=== PATIENT | female | born 1980 | race Caucasian/White ===

== ENCOUNTER 2017-08-02 20:24 | Emergency (ER) | payer OTHER ==
[~2017-08-02] VITALS: Ht 177.8 cm; Wt 62.6 kg
[2017-08-02 22:38] VITALS: BP 140/90
== END 2017-08-02 22:40 | disposition home or self-care (01) ==
LOC: ER 20:25
DX: S05.11XA Contusion of eyeball and orbital tissues, right eye, initial encounter (principal); S30.810A Abrasion of lower back and pelvis, initial encounter; Y04.0XXA Assault by unarmed brawl or fight, initial encounter; Y93.89 Activity, other specified; Y92.481 Parking lot as the place of occurrence of the external cause; Y99.9 Unspecified external cause status
CPT/HCPCS: 99281

== ENCOUNTER 2020-04-28 22:43 | Emergency (ER) | payer MEDICARE, MEDICAID ==
[~2020-04-28] VITALS: Ht 170.2 cm; Wt 57.7 kg
[2020-04-28 22:44] VITALS: BP 134/103
[2020-04-28] MEDS ORDERED: ibuprofen tablet 400 MG TABLET PO ONE (23:30)
--- NOTE | 2020-04-28 23:34 | NUR ---
Pt in bed with [facility]P at bedside.
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
== END 2020-04-29 00:32 ==
LOC: ER 22:45
DX: M54.5 Low back pain (principal)
CPT/HCPCS: 36415; 72100; 80320; 99284

== ENCOUNTER 2020-07-15 08:44 | Emergency (ER) | payer MEDICARE, MEDICAID ==
[~2020-07-15] VITALS: Ht 170.2 cm; Wt 55.9 kg
[2020-07-15 09:06] VITALS: BP 168/105
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
== END 2020-07-15 10:13 | disposition left against medical advice (07) ==
LOC: ER 08:44
DX: L23.7 Allergic contact dermatitis due to plants, except food (principal); Z53.21 Procedure and treatment not carried out due to patient leaving prior to being seen by health care provider

== ENCOUNTER 2021-09-08 06:51 | Emergency (ER) | payer MEDICARE, MEDICAID ==
[~2021-09-08] VITALS: Ht 167.6 cm; Wt 56.8 kg
[2021-09-08 06:54] VITALS: BP 135/87
[2021-09-08] MEDS ORDERED: NAPR-56 PO (07:40)
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
--- NOTE | 2021-09-08 08:00 | NUR ---
PATIENT HAS NOT GIVEN URINALYSIS YET AND STATES SHE WANTS GAUZE TO PUT ON HER FOOT WOUNDS. PATIENT GIVEN CLEANSING WIPES, TRIPLE ANTIBIOTIC OINT, GAUZE, TAPE, AND SLIPPER SOCKS. URINE CUP PROVIDED AND PATIENT INSTRUCTED TO WALK TO THE BATHROOM AFTER SHE FINISHES PUTTING GAUZE ON HER FOOT WOUNDS.
--- NOTE | 2021-09-08 08:10 | NUR ---
PATIENT SITTING UP ON THE GURNEY, PICKING ON HER FOOT WOUNDS. PATIENT IS INSTRUCTED TO PUT ON SLIPPER SOCKS AND GIVE THE URINE SPECIMEN, SO ANALYSIS CAN BE COMPLETED. PATIENT STATES SHE WILL DO THAT RIGHT AWAY.
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
--- NOTE | 2021-09-08 08:40 | NUR ---
DC PAPERWORK GIVEN TO PATIENT AND SECURITY ESCORTED PATIENT OUT OF ER. PATIENT DEPARTED AMBULATORY, IN GOOD CONDITION, STATING THAT SHE WILL GO TO [facility] ER TO HAVE THE URINALYSIS DONE.
== END 2021-09-08 08:55 | disposition home or self-care (01) ==
LOC: ER 06:52
DX: S90.812A Abrasion, left foot, initial encounter (principal); S90.811A Abrasion, right foot, initial encounter; L03.116 Cellulitis of left lower limb; L03.115 Cellulitis of right lower limb; L23.7 Allergic contact dermatitis due to plants, except food; Z72.89 Other problems related to lifestyle; Z79.899 Other long term (current) drug therapy; X58.XXXA Exposure to other specified factors, initial encounter; Y93.01 Activity, walking, marching and hiking; Y92.89 Other specified places as the place of occurrence of the external cause; Y99.8 Other external cause status
CPT/HCPCS: 99282

== ENCOUNTER 2021-09-12 14:59 | Emergency (ER) | payer MEDICARE, MEDICAID ==
[~2021-09-12] VITALS: Ht 170.2 cm; Wt 55.5 kg
[~2021-09-12 14:59] MED LIST: NAPR-56 PO
[2021-09-12] MEDS ORDERED: normal saline 1000ML IV soln IVB ONE (15:05)
[2021-09-12] MEDS ORDERED: LORazepam 2 mg/ml vial IV ONE (15:05)
[2021-09-12 15:31] LABS: BASOPHILS % (AUTO) 0.5 % (0-1); EOSINOPHILS % (AUTO) 0.2 % (0-6); HEMATOCRIT 35.5 % (35.0-45.0); HEMOGLOBIN 12.4 g/dl (12.0-16.0); LYMPHOCYTES # (AUTO) 1.3 X10'3 (1.1-4.8); LYMPHOCYTES % (AUTO) 15.8 % (21-51); MEAN CORPUSCULAR HEMOGLOBIN 31.2 PG (27.0-31.0); MEAN CORPUSCULAR VOLUME 89.3 FL (78-98); MEAN PLATELET VOLUME 8.9 FL (7.4-10.4); MONOCYTES % (AUTO) 11.4 % (2-12); NEUTROPHILS % (AUTO) 72.1 % (42-75); PLATELET COUNT 352 X10'3 (140-440); RED BLOOD COUNT 3.98 X10'6 (4.20-5.60); RED CELL DISTRIBUTION WIDTH 14.5 % (11.5-14.5); WHITE BLOOD COUNT 8.3 X10'3 (4.5-11.0)
[2021-09-12 15:52] LABS: ALANINE AMINOTRANSFERASE 112 U/L (12-78); ALBUMIN 4.1 G/DL (3.4-5.0); ALKALINE PHOSPHATASE 42 IU/L (46-116); ANION GAP 18 (8-16); ASPARTATE AMINO TRANSFERASE 174 U/L (10-37); BILIRUBIN,TOTAL 1.2 MG/DL (0.1-1.0); BLOOD UREA NITROGEN 37 MG/DL (7-18); BUN/CREATININE RATIO 38.1 (6.6-38.0); CALCIUM 9.4 MG/DL (8.5-10.1); CHLORIDE 104 MMOL/L (99-107); CREATININE 0.97 MG/DL (0.40-0.90); GLUCOSE 135 MG/DL (70-104); POTASSIUM 3.9 MMOL/L (3.5-5.1); SODIUM 142 MMOL/L (135-145); TOTAL CARBON DIOXIDE 19.7 MMOL/L (24-32); TOTAL PROTEIN 8.3 G/DL (6.4-8.2); eGFR 63 ML/MIN
[2021-09-12 16:00] LABS: ETHANOL < 0.010 GM/DL (0.0-0.010)
[2021-09-12 16:05] LABS: CREATINE KINASE 6433 U/L (26-192)
[2021-09-12 16:38] LABS: GLUCOSE, URINE NEGATIVE (Neg); KETONES,URINE 40 mg/dl (Neg); LEUKOCYTE ESTERASE ,URINE NEGATIVE (Neg); NITRITES, URINE NEGATIVE (Neg); OCCULT BLOOD,URINE SMALL (Neg); PROTEIN,URINE 100 mg/dl (Neg); UA COLLECTION TYPE STRAIGHT CATH; UROBILINOGEN,URINE 0.2 E.U/dL (0.2-1.0)
[2021-09-12 16:39] LABS: CLARITY,URINE SLIGHTLY CLOUDY (Clear); COLOR,URINE DARK YELLOW (Yellow)
[2021-09-12 16:44] LABS: BACTERIA,URINE FEW /HPF (Neg); MUCUS STRANDS MODERATE /LPF (Neg); RBC,URINE 0-2 /HPF (0-2); SQUAMOUS EPITHELIAL CELL,UR NONE SEEN /LPF (FEW); TRANSITIONAL EPI CELLS,URINE FEW /HPF; WBC,URINE 0-4 /HPF (0-4)
[2021-09-12 16:51] LABS: URINE AMPHETAMINE SCREEN NEGATIVE (Neg); URINE BARBITUATE SCREEN NEGATIVE (Neg); URINE BENZODIAZEPINES SCREEN NEGATIVE (Neg); URINE CANNABINOID SCREEN POSITIVE (Neg); URINE COCAINE SCREEN NEGATIVE (Neg); URINE METHADONE SCREEN NEGATIVE (Neg); URINE OPIATE SCREEN NEGATIVE (Neg); URINE PHENCYCLIDINE SCREEN NEGATIVE (Neg)
[2021-09-12 16:56] LABS: URINE HCG NEGATIVE (NEG)
[2021-09-12] MEDS ORDERED: normal saline 1000ml 1,000 ML IV ONE (17:55)
[2021-09-12] MEDS: ringers solution, lacted 1,000 ML IV SCH ×2 (18:04→23:27)
--- NOTE | 2021-09-12 18:42 | NUR ---
Pt pink, no acute/resp distress. Bed in lowest position, wheels locked, rail 2/2 up. Pt laying supine. Pt able to reposition self prn. Will continue to monitor for acute changes and needs.
[2021-09-12] MEDS ORDERED: CYCL-1 PO (20:21)
[2021-09-12] MEDS ORDERED: HYDR50TA65 PO (20:21)
[2021-09-12] MEDS ORDERED: NORG-45 (20:21)
[2021-09-12] MEDS ORDERED: NAPR500T6 PO (20:21)
[2021-09-12] MEDS ORDERED: ACET-75 (20:21)
--- NOTE | 2021-09-12 20:34 | NUR ---
Note freeman in EDM - 09/12/21 at 2034 by NYA Pt pink, no acute/resp distress. Bed in lowest position, wheels locked, rail 2/2 up. Will continue to monitor for acute changes and needs. Pt laying supine, able to reposition self PRN. Will continue to monitor for acute changes and needs.
[2021-09-12 20:55] LABS: CREATINE KINASE 4236 U/L (26-192)
--- NOTE | 2021-09-12 22:20 | NUR ---
Patient's packet was sent to [facility].
--- NOTE | 2021-09-13 02:57 | NUR ---
Pt pink, no acute/resp distress. Bed in lowest position, wheels locked, rail 2/2 up. Pt laying supine. Pt able to reposition self prn. Will continue to monitor for acute changes and needs. Pt to bathroom via wc. Pt eating jello and drinking juice.
--- NOTE | 2021-09-13 05:04 | NUR ---
Pt pink, no acute/resp distress. Bed in lowest position, wheels locked, rail 2/2 up. Pt laying left. Pt able to reposition self prn. Will continue to monitor for acute changes and needs.
--- NOTE | 2021-09-13 06:40 | NUR ---
Pt talks to herself. Stated that parasites are trying to get out of her body. Multiple abrassions on B UE and old blisters on B feet. She admitted to pulling out her IV.
--- NOTE | 2021-09-13 07:00 | NUR ---
Pt is baby talking and acting very childish. She is cooperative.
[2021-09-13] MEDS ORDERED: OLANZapine 5mg rapidly disint. tablet PO ONE (07:55)
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
[2021-09-13] MEDS ORDERED: LORazepam 2 mg/ml vial IV ONE (08:20)
[2021-09-13] MEDS: ringers solution, lacted 1,000 ML IV SCH ×3 (08:30→21:50)
[2021-09-13 08:32] LABS: BASOPHILS # (AUTO) 0.1 X10'3 (0-0.2); BASOPHILS % (AUTO) 0.7 % (0-1); EOSINOPHILS # (AUTO) 0.1 X10'3 (0-0.9); EOSINOPHILS % (AUTO) 1.2 % (0-6); HEMATOCRIT 33.3 % (35.0-45.0); HEMOGLOBIN 11.3 g/dl (12.0-16.0); LYMPHOCYTES # (AUTO) 2.6 X10'3 (1.1-4.8); LYMPHOCYTES % (AUTO) 34.9 % (21-51); MEAN CORPUSCULAR HEMOGLOBIN 31.2 PG (27.0-31.0); MEAN CORPUSCULAR VOLUME 91.7 FL (78-98); MEAN PLATELET VOLUME 8.9 FL (7.4-10.4); MONOCYTES # (AUTO) 0.8 X10'3 (0-0.9); MONOCYTES % (AUTO) 10.7 % (2-12); NEUTROPHILS # (AUTO) 3.9 X10'3 (1.8-7.7); NEUTROPHILS % (AUTO) 52.5 % (42-75); PLATELET COUNT 292 X10'3 (140-440); RED BLOOD COUNT 3.63 X10'6 (4.20-5.60); RED CELL DISTRIBUTION WIDTH 14.7 % (11.5-14.5); WHITE BLOOD COUNT 7.3 X10'3 (4.5-11.0)
[2021-09-13 08:47] LABS: ALANINE AMINOTRANSFERASE 88 U/L (12-78); ALBUMIN 3.2 G/DL (3.4-5.0); ALKALINE PHOSPHATASE 32 IU/L (46-116); ANION GAP 11 (8-16); ASPARTATE AMINO TRANSFERASE 115 U/L (10-37); BILIRUBIN,TOTAL 0.9 MG/DL (0.1-1.0); BLOOD UREA NITROGEN 13 MG/DL (7-18); BUN/CREATININE RATIO 17.6 (6.6-38.0); CALCIUM 8.1 MG/DL (8.5-10.1); CHLORIDE 105 MMOL/L (99-107); CREATININE 0.74 MG/DL (0.40-0.90); GLUCOSE 91 MG/DL (70-104); POTASSIUM 3.5 MMOL/L (3.5-5.1); SODIUM 141 MMOL/L (135-145); TOTAL CARBON DIOXIDE 24.9 MMOL/L (24-32); TOTAL PROTEIN 6.5 G/DL (6.4-8.2); eGFR 86 ML/MIN
[2021-09-13 08:56] LABS: CREATINE KINASE 3883 U/L (26-192); MAGNESIUM 1.7 MG/DL (1.5-2.4)
--- NOTE | 2021-09-13 09:00 | NUR ---
Pt ate 100% of breakfast.
--- NOTE | 2021-09-13 11:00 | NUR ---
Pt is resting.
--- NOTE | 2021-09-13 12:35 | NUR ---
Pt ate 30% of lunch.
--- NOTE | 2021-09-13 13:30 | NUR ---
Ange millard in [facility] - 09/13/21 at 1753 by MACARIO Pt ate 40% of lunch.
--- NOTE | 2021-09-13 14:05 | NUR ---
Up to void.
[2021-09-13 16:07] LABS: CREATINE KINASE 2658 U/L (26-192)
--- NOTE | 2021-09-13 17:00 | NUR ---
Pt is resting.
[2021-09-13 17:40] LABS: ALANINE AMINOTRANSFERASE 73 U/L (12-78); ALBUMIN 2.6 G/DL (3.4-5.0); ALBUMIN/GLOBULIN RATIO 0.9 (1.1-1.5); ALKALINE PHOSPHATASE 28 IU/L (46-116); ANION GAP 10 (8-16); ASPARTATE AMINO TRANSFERASE 86 U/L (10-37); BILIRUBIN,TOTAL 0.5 MG/DL (0.1-1.0); BLOOD UREA NITROGEN 11 MG/DL (7-18); CALCIUM 8.1 MG/DL (8.5-10.1); CHLORIDE 105 MMOL/L (99-107); CREATININE 0.55 MG/DL (0.40-0.90); GLUCOSE 103 MG/DL (70-104); POTASSIUM 3.5 MMOL/L (3.5-5.1); SODIUM 138 MMOL/L (135-145); TOTAL CARBON DIOXIDE 22.6 MMOL/L (24-32); TOTAL PROTEIN 5.6 G/DL (6.4-8.2); eGFR > 90 ML/MIN
[2021-09-13] MEDS ORDERED: ringers solution, lacted 1,000 ML IV ONE (18:05)
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
[2021-09-13] MEDS: OLANZapine 5mg rapidly disint. tablet PO SCH (20:40)
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
--- NOTE | 2021-09-13 23:06 | NUR ---
The patient appears to be sleeping
--- NOTE | 2021-09-14 01:01 | NUR ---
The patient appears to be sleeping
--- NOTE | 2021-09-14 01:58 | NUR ---
The patient appears to be sleeping
--- NOTE | 2021-09-14 03:48 | NUR ---
The patient appears to be sleeping
--- NOTE | 2021-09-14 05:19 | NUR ---
The patient appeared to have slept fairly well during the night. She did ambulate to and from the bathroom twice.
[2021-09-14 06:01] VITALS: BP 113/69
[2021-09-14] MEDS: OLANZapine 5mg rapidly disint. tablet PO SCH (08:40)
--- NOTE | 2021-09-14 10:16 | NUR ---
PT UP AMBULATING IN UNIT, TALKING TO SELF. APPROPRIATE, PLEASANT.
--- NOTE | 2021-09-14 10:25 | NUR ---
PRASHANTH FROM [facility] CALLED. PT HAS BEEN ACCEPTED TO [facility] IN [place]. WILL BE PICKED UP TODAY AT 2PM JUST NEEDS A COVID TEST.
[2021-09-14] MEDS ORDERED: LORazepam 1 MG tablet PO ONE (11:00)
--- NOTE | 2021-09-14 11:00 | NUR ---
PT ESCALATING THROWING THINGS, CALLING STAFF BITCHES, INFORMED DR. ALEJANDRA.PLEASE SEE NEW ORDERS.
--- NOTE | 2021-09-14 11:57 | NUR ---
PT CALM LAYING IN BED.
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
--- NOTE | 2021-09-14 12:03 | NUR ---
KATHARINE [id number]
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
== END 2021-09-14 14:13 ==
LOC: ER 15:00
DX: F29 Unspecified psychosis not due to a substance or known physiological condition (principal); Z20.822 Contact with and (suspected) exposure to COVID-19; F31.9 Bipolar disorder, unspecified; M62.82 Rhabdomyolysis; F20.9 Schizophrenia, unspecified; Z72.89 Other problems related to lifestyle; Z79.899 Other long term (current) drug therapy
CPT/HCPCS: 36415; 80053; 80305; 80320; 81001; 81025; 82550; 83605; 83735; 84443; 85025; 87635; 96361; 96374; 96376; 99285; C9803; J2060; J7030; J7120

== ENCOUNTER 2021-10-12 08:52 | Emergency (ER) | payer MEDICARE, MEDICAID ==
[~2021-10-12] VITALS: Ht 170.2 cm; Wt 60.0 kg
[~2021-10-12 08:52] MED LIST changes: +ACET-75; +CYCL-1 PO; +HYDR50TA65 PO; -NAPR-56 PO; +NAPR500T6 PO; +NORG-45
[2021-10-12 08:55] VITALS: BP 128/99
[2021-10-12] MEDS ORDERED: TETanus/Pertussis (Acell)/Diphther VAC/PF (Tdap-Adult) 0.5ml syringe IMVAC ONE (09:05)
[2021-10-12] MEDS ORDERED: LIDOcaine 1% W/epiNEPHrine 1:100,000 20ml vial IJ ONE (09:05)
[2021-10-12] MEDS ORDERED: LIDOcaine 1% W/epiNEPHrine 1:200,000 10ml vial IJ ONE (09:05)
[2021-10-12] MEDS ORDERED: LORazepam 1 MG tablet PO ONE (09:20)
--- NOTE | 2021-10-12 09:27 | NUR ---
welding machine operator/tender at bedside to clean head leac. pt pre-medicated with ativan.
== END 2021-10-12 09:58 ==
LOC: ER 08:52
DX: S01.01XA Laceration without foreign body of scalp, initial encounter (principal); F31.9 Bipolar disorder, unspecified; Z72.89 Other problems related to lifestyle; Z79.899 Other long term (current) drug therapy; Z20.3 Contact with and (suspected) exposure to rabies; X58.XXXA Exposure to other specified factors, initial encounter; Y93.89 Activity, other specified; Y92.89 Other specified places as the place of occurrence of the external cause; Y99.8 Other external cause status
CPT/HCPCS: 12002; 90471; 90715; 99284; J3490; 12001

== ENCOUNTER 2021-10-13 13:14 | Inpatient (IN) | payer MEDICARE, MEDICAID ==
[~2021-10-13] VITALS: Ht 170.2 cm; Wt 69.0 kg
[2021-10-13 13:41] LABS: BASOPHILS % (AUTO) 0.7 % (0-1); EOSINOPHILS % (AUTO) 0.4 % (0-6); HEMATOCRIT 34.9 % (35.0-45.0); HEMOGLOBIN 11.5 g/dl (12.0-16.0); LYMPHOCYTES # (AUTO) 1.9 X10'3 (1.1-4.8); LYMPHOCYTES % (AUTO) 29.9 % (21-51); MEAN CORPUSCULAR HEMOGLOBIN 30.4 PG (27.0-31.0); MEAN CORPUSCULAR HGB CONC 32.9 g/dL (33.0-36.5); MEAN CORPUSCULAR VOLUME 92.4 FL (78-98); MEAN PLATELET VOLUME 7.8 FL (7.4-10.4); MONOCYTES # (AUTO) 0.4 X10'3 (0-0.9); MONOCYTES % (AUTO) 6.4 % (2-12); NEUTROPHILS # (AUTO) 3.9 X10'3 (1.8-7.7); NEUTROPHILS % (AUTO) 62.6 % (42-75); PLATELET COUNT 394 X10'3 (140-440); RED BLOOD COUNT 3.78 X10'6 (4.20-5.60); RED CELL DISTRIBUTION WIDTH 14.4 % (11.5-14.5); WHITE BLOOD COUNT 6.2 X10'3 (4.5-11.0)
[2021-10-13 13:53] LABS: ALANINE AMINOTRANSFERASE 25 U/L (12-78); ALBUMIN 4.1 G/DL (3.4-5.0); ALBUMIN/GLOBULIN RATIO 1.2 (1.1-1.5); ALKALINE PHOSPHATASE 41 IU/L (46-116); ANION GAP 11 (8-16); ASPARTATE AMINO TRANSFERASE 25 U/L (10-37); BLOOD UREA NITROGEN 11 MG/DL (7-18); BUN/CREATININE RATIO 16.4 (6.6-38.0); CALCIUM 9.2 MG/DL (8.5-10.1); CHLORIDE 103 MMOL/L (99-107); CREATININE 0.67 MG/DL (0.40-0.90); GLUCOSE 104 MG/DL (70-104); POTASSIUM 3.8 MMOL/L (3.5-5.1); SODIUM 136 MMOL/L (135-145); TOTAL CARBON DIOXIDE 21.9 MMOL/L (24-32); TOTAL PROTEIN 7.6 G/DL (6.4-8.2); eGFR > 90 ML/MIN
[2021-10-13 14:08] LABS: ETHANOL < 0.010 GM/DL (0.0-0.010)
[2021-10-13 14:45] LABS: URINE HCG NEGATIVE (NEG)
[2021-10-13] MEDS ORDERED: LORazepam 2 mg/ml vial IM ONE (14:45)
[2021-10-13] MEDS ORDERED: haloperidol lactate 5mg/ml inj IM ONE (14:45)
[2021-10-13] MEDS ORDERED: diphenhydrAMINE 50 mg/ml inj IM ONE (14:45)
[2021-10-13 14:49] LABS: URINE AMPHETAMINE SCREEN POSITIVE (Neg); URINE BARBITUATE SCREEN NEGATIVE (Neg); URINE BENZODIAZEPINES SCREEN NEGATIVE (Neg); URINE CANNABINOID SCREEN POSITIVE (Neg); URINE COCAINE SCREEN NEGATIVE (Neg); URINE METHADONE SCREEN NEGATIVE (Neg); URINE OPIATE SCREEN NEGATIVE (Neg); URINE PHENCYCLIDINE SCREEN NEGATIVE (Neg)
--- NOTE | 2021-10-13 15:15 | NUR ---
PATIENT MEDICATED FOR ANXIETY/RESTLESSNESS. PATIENT WALKING AROUND IN ROOM WITH BLANKET OVER HER HEAD. PATIENT ENCOURAGED TO REST ON GURNEY, BUT STATES SHE WANTS TO LEAVE NOW. INFORMED SHE WAS ON 5150 HOLD.
--- NOTE | 2021-10-13 19:35 | NUR ---
Pt arrived from main ED and immediately got soap and attempted to use wipes and began washing her hands. Pt requested to use the restoom and did. Pt returned to bed and requested food and water but fell asleep before being provided with either. Pt is currently in bed snoring. RR 16
--- NOTE | 2021-10-13 21:51 | NUR ---
pt laying on her back asleep rr even and unlabored
--- NOTE | 2021-10-14 00:44 | NUR ---
pt is laying on her left side continues to sleep, rr even and unlabored.
--- NOTE | 2021-10-14 02:18 | NUR ---
pt appears to be resting comfortably no distress
--- NOTE | 2021-10-14 03:41 | NUR ---
pt woke to use the bathroom and attempted to flush a garbage bag down the trash and attempted to wash her hair in the sink. Pt put hand soap all over her face and was given a wash cloth to wipe herself off. Pt returned to bed
--- NOTE | 2021-10-14 04:45 | NUR ---
pt is awake requesting to eat and was provided with snacks. Pt throws trash on the floor and is attempting to get more hand soap but was redirected back to her bed. Pt is talking to herself.
--- NOTE | 2021-10-14 06:30 | NUR ---
Patient sleeping on left side. No distress observed. Continue to monitor.
--- NOTE | 2021-10-14 08:05 | NUR ---
Patient eating breakfast. Patient appears disorganized. Continue to monitor.
--- NOTE | 2021-10-14 08:19 | NUR ---
Attempted to obtain urine. Patient was given instructions; hat was placed in toilet, however patient managed to turn hat upside down and pour urine into toilet, then proceeded to fill toilet with paper towels and toilet seat covers.
--- NOTE | 2021-10-14 08:40 | NUR ---
RN gave patient a pitcher of water. Patient drank and then threw on the floor. Patient started speaking to RN stating "At least I know who I am. You don't who you are!"
--- NOTE | 2021-10-14 10:09 | NUR ---
Patient sleeping. No distress observed. RN to ask Dr for antipsychotic medication to start getting patient better. Continue to monitor.
[2021-10-14 11:12] LABS: CLARITY,URINE SLIGHTLY CLOUDY (Clear); COLOR,URINE YELLOW (Yellow); GLUCOSE, URINE NEGATIVE (Neg); KETONES,URINE NEGATIVE (Neg); LEUKOCYTE ESTERASE ,URINE NEGATIVE (Neg); NITRITES, URINE NEGATIVE (Neg); OCCULT BLOOD,URINE SMALL (Neg); PROTEIN,URINE NEGATIVE (Neg); UROBILINOGEN,URINE 0.2 E.U/dL (0.2-1.0)
--- NOTE | 2021-10-14 11:18 | NUR ---
Patient just returned from the restroom, noted to have shoved the paper bag from the trash can into the toilet. She is now laying supine with blanket wrapped around her head like a turban, randomly making high pitched noises, and having nonsensical converations with herself.
[2021-10-14 11:28] LABS: UA COLLECTION TYPE CLN CATCH MIDSTREAM
[2021-10-14 11:37] LABS: BACTERIA,URINE FEW /HPF (Neg); SQUAMOUS EPITHELIAL CELL,UR MODERATE /LPF (FEW)
[2021-10-14 11:38] LABS: RBC,URINE 0-2 /HPF (0-2); WBC,URINE 0-4 /HPF (0-4)
[2021-10-14 11:39] LABS: TRANSITIONAL EPI CELLS,URINE FEW /HPF
--- NOTE | 2021-10-14 12:08 | NUR ---
Patient eating lunch. No distress observed. Continue to monitor.
[2021-10-14] MEDS: OLANZapine 5mg rapidly disint. tablet PO SCH ×2 (12:26→19:39)
--- NOTE | 2021-10-14 12:47 | NUR ---
Note freeman in ED - 10/14/21 at 1256 by STALIN Patient just returned from the bathroom with soap in hair and attempted to use the purple Sani-Cloth wipe to clean face. Patient was redirected back to bed. Continues to randomly speak to herself- occasionally nonsensical sounds, occasionally saying innapropriate comments to staff such as "you're a hoe."
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
--- NOTE | 2021-10-14 12:57 | NUR ---
Patient just returned from the bathroom with soap in hair and attempted to use the purple Sani-Cloth wipe to clean face. Patient was redirected back to bed. Continues to randomly speak to herself- occasionally nonsensical sounds, occasionally saying innapropriate comments to staff such as "you're a hoe."
--- NOTE | 2021-10-14 15:02 | NUR ---
Patient sleeping supine. No distress observed. Continue to monitor.
--- NOTE | 2021-10-14 17:04 | NUR ---
Patient on the phone with her mom. No distress observed. Continue to monitor.
[2021-10-14] MEDS ORDERED: NO HOME MEDS (18:21)
--- NOTE | 2021-10-14 19:14 | NUR ---
The patient has been very disorganized and appears to be responding to internal stimuli. SHe is cursing at someone who is not there. She is throwing items on the floor by her bed like her water cup etc. She is wondering around in areas that she is not allowed to go and requires frequent redirection and close supervision.
--- NOTE | 2021-10-14 20:18 | NUR ---
The patient was cooperative with changing into green scrubs and took her evening medication with no problem. She currently appears to be sleeping
--- NOTE | 2021-10-14 22:34 | NUR ---
The patient appears to be sleeping
--- NOTE | 2021-10-14 23:40 | NUR ---
The patient appears to be sleeping
--- NOTE | 2021-10-15 00:41 | NUR ---
The patient appears to be sleeping
--- NOTE | 2021-10-15 02:14 | NUR ---
The patient appears to be sleeping
--- NOTE | 2021-10-15 03:07 | NUR ---
THe patient up to use the bathroom
--- NOTE | 2021-10-15 03:51 | NUR ---
The patient continues to be disorganized. Was up to use the bathroom but let her blankets fall on the floor. SHe was given warm blankets and now appears back asleep
--- NOTE | 2021-10-15 05:16 | NUR ---
The patient appeared to have slept well during the night. She did get up briefly several times to use the bathroom but then went right back to bed
--- NOTE | 2021-10-15 06:30 | NUR ---
Patient received walking around the unit, pressing alarm buttons, removing linen from her bed, requring frequent redirection. She was observed ambulating to the restroom with a steady gait. Patient noted to have started her menstrual cycle this morning. She was provided with new undergarments and a sanitary pad. She is observed pacing around the unit at this time. Will continue to monitor.
[2021-10-15] MEDS: OLANZapine 5mg rapidly disint. tablet PO SCH ×2 (07:54→19:54)
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
[2021-10-15] MEDS ORDERED: olanzapine 10mg tablet PO ONE (10:05)
--- NOTE | 2021-10-15 10:22 | NUR ---
Patient noted sobbing and yelling out that she "doesn't want to be here anymore" and "doesn't want to go back to her room". Patient was redirected back to her room and given a juice, sandwich, and warm blanket. Patient endorsing c/o anxiety and was given a one-time dose of Zyprexa 10mg PO per order by Dr. Cordero. Patient received medication without hesitancy. She is noted sitting in her room at this time with no s/s of distress. Will continue to monitor.
--- NOTE | 2021-10-15 10:40 | NUR ---
Patient is becoming increasingly agitated, yelling absurdities at staff and stating that we are the crazy ones, and that we need liz in our heads. Security called to bedside.
[2021-10-15] MEDS ORDERED: acetaminophen 325mg tablet PO ONE ×2 (10:45→13:10)
--- NOTE | 2021-10-15 10:45 | NUR ---
Patient noted to be delusional, disorgaized, aggressive and intrusive. Patient noted to be verbally aggressive toward staff requiring security to intervene and redirect.
--- NOTE | 2021-10-15 11:30 | NUR ---
Patient is observed sleeping in her bed at this time. Respirations even, unlabored. Will continue to monitor.
--- NOTE | 2021-10-15 12:03 | NUR ---
Patient awoke and was noted ambulating to the restroom with a steady gait. She retreated back to her room to eat lunch. No s/s of distress or complaints at this time. Will continue to monitor.
--- NOTE | 2021-10-15 12:09 | NUR ---
Patient abruptly yelled out from her room, "take your hands off my children now!"
--- NOTE | 2021-10-15 14:30 | NUR ---
Patient observed sleeping supine in her room at this time. Noted rise and fall of chest. No s/s of distress. Will continue to monitor.
--- NOTE | 2021-10-15 15:32 | NUR ---
Patient awoke and was noted walking around the unit, throwing objects onto the ground. Patient noted to be delusional, disorgaized and intrusive. Will continue to monitor.
[2021-10-15] MEDS ORDERED: hydrOXYzine 25 MG tablet PO ONE (15:40)
[2021-10-15] MEDS: acetaminophen 325mg tablet PO PRN ×2 (15:59→20:44)
--- NOTE | 2021-10-15 16:02 | NUR ---
Patient c/o anxiety and head pain due to liz in her head. She was provided with PRN Atarax and PRN Tylenol at approximately 1559. Will continue to monitor.
--- NOTE | 2021-10-15 16:20 | NUR ---
Patient requested to call mother, Monica, who can be contacted at [phone].
--- NOTE | 2021-10-15 16:30 | NUR ---
Patient observed pacing around the unit, noted sobbing and creating a disturbance. Patient redirected back to her room. She is noted using the restroom frequently and leaving trash all over the ground.
--- NOTE | 2021-10-15 17:35 | NUR ---
Patient provided with personal hygiene supplies. She is observed ambulating around the unit at this time with no s/s of distress. Will continue to monitor.
--- NOTE | 2021-10-15 19:00 | NUR ---
One to one with the patient to assess severity of thought disorder. The patient presents disorganized. She is talking in a high pitched squeeky voice. When she was asked how her mood was she replied, "I have a lot of anxiety. The bad men have kidnapped my my children for sex trafficking..." She then went on to make unrelated statements that were difficult to follow. She denies thoughts to harm herself or others. She was unable to verbalize a realistic plan for food, fdc or clothing if she were not in the hospital and made rambling statements about being sold into human trafficking but then stated she was not sure if that was accurate stating, "I think. I don't know. It gets fuzzy" When asked if she was hearing voices she replied, "just the holy spirit. I have to go with my gut instinct" The patient is unable to formulate any kind of realistic plan for food, fdc or clothing if she was not hospitalized. Her insight and judgement are very poor. Hospitalization pending for further stabilization and evaluation.
--- NOTE | 2021-10-15 20:32 | NUR ---
The patient appears to be sleeping
--- NOTE | 2021-10-15 22:04 | NUR ---
The patient is up and restless. She is very disorganized and at this time paranoid. She is spitting on her bed and other odd behaviors. Discussed behaviors with PA and orders received.
[2021-10-15] MEDS ORDERED: LORazepam 1 MG tablet PO ONE (22:05)
--- NOTE | 2021-10-15 22:14 | NUR ---
The patient has been accepted at [facility] for an am transfer
--- NOTE | 2021-10-15 23:10 | NUR ---
The patient appears to be sleeping
--- NOTE | 2021-10-16 01:09 | NUR ---
The patient appears to be sleeping
--- NOTE | 2021-10-16 02:46 | NUR ---
The patient appears to be sleeping
--- NOTE | 2021-10-16 04:07 | NUR ---
The patient appears to be sleeping
--- NOTE | 2021-10-16 05:12 | NUR ---
The patient appears to be sleeping
[2021-10-16] MEDS: OLANZapine 5mg rapidly disint. tablet PO SCH ×2 (07:23→19:53)
[2021-10-16] MEDS: acetaminophen 325mg tablet PO PRN (07:23)
--- NOTE | 2021-10-16 07:30 | NUR ---
Pt is up pacing the floors and going in and out of the bathrooms pushing the alarms on and off in the bathrooms and by her bed. Pt asked for her medications and was given both Zyprexa and Tylenol as requested.
--- NOTE | 2021-10-16 08:28 | NUR ---
Pt took her medications as prescribed. She continues to pace, touching things, going in and out of the bathrooms. She told this production underwriter, "I don't like you, I think you"re a witch." Pt is observed walking backwards focused the the fround then moving sideways. She later is observed cleaning the floor with papertowels.
--- NOTE | 2021-10-16 09:04 | NUR ---
Pt discharged to [facility]. Pt belongings and original [id number] with staff, Leon and security.
--- NOTE | 2021-10-16 09:26 | NUR ---
Admit note: Pt admitted today on 5149 for Gravely disabled from our emergency room. Pt was found in a trash dumpster eating napkins. Pt has been very disorganized and disoriented. When asked where she lives she replies "They don't let me." Pt unable to articulate where she is or where she would go if she leaves hospital. Addendum: 10/16/21 at 0954 by Leon Morales) RANCHO Pt has history of Bipolar and 4 liz in her scalp need removed on October 19
[2021-10-16 09:40] VITALS: BP 132/82
[2021-10-16] MEDS ORDERED: loperamide 2mg capsule PO PRN (09:50)
[2021-10-16] MEDS ORDERED: mag hydrox/Alum hydrox/simeth 30ml oral suspension PO PRN (09:50)
[2021-10-16] MEDS ORDERED: acetaminophen 325mg tablet PO PRN ×2 (09:50)
[2021-10-16] MEDS: ibuprofen 200mg tablet PO PRN ×2 (13:41→19:53)
--- NOTE | 2021-10-16 14:07 | NUR ---
PRNs Administered: Pt. reported chronic lower back and hip pain and requested Motrin. This was endorsed to Dr. Zee, and an order was obtained for Motrin 200mg TID PRN. Interventions Offered: PRN Motrin was administered and will continue to monitor. Response to Medication: Pt. reports contentment and is laying in bed resting at this time, will continue to monitor.
[2021-10-16] MEDS ORDERED: LORazepam 1 MG tablet PO ONE (14:35)
--- NOTE | 2021-10-16 14:54 | NUR ---
PRNs Administered: Pt. exhibited increasing restlessness and intrusiveness. She was observed to be walking up to others and taking items from them stating, "This is mine!" Pt. required redirection from multiple staff members. This story writer endorsed these behaviors to Dr. Zee, and obtained an order Ativan 1mg once. Interventions Offered: Pt. required redirection from multiple staff members. Response to Medication: Pt. accepted this medication and was able to be redirected. Will continue to monitor her behaviors closely.
--- NOTE | 2021-10-16 15:03 | NUR ---
Admission Assessment was completed with pt. and she presents with disorganization and is a poor historian. Pt. is restless and easily distracted. She presents with paranoid delusions and states, "I was living in [facility] and hanging out with vampires. 20,000 women and children in [facility] and they want all the blood." Pt. is labile and finally states agitatedly, "I'm done with these questions, they are pissing me off! Get out of my room!" This policy writer sales gave this pt. some time to cool down and was able to return later and complete assessment. Pt. scored as a low risk on the [place] Suicide Risk Assessment, this was endorsed to Dr. Zee who ordered Q 15min safety checks. Pt. has abrasions present on the top and bottom of her bilateral feet, pictures were obtained and placed in pt's chart. Pt. also has liz present on the top of the right side of her head from a previous injury. Scalp is well approximated and no redness or drainage was noted.
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
[2021-10-16] MEDS ORDERED: OLANZapine 5mg rapidly disint. tablet PO ONE (16:40)
[2021-10-16] MEDS: magnesium hydroxide 30ml (MOM) UD suspension PO PRN (19:53)
--- NOTE | 2021-10-17 01:27 | NUR ---
Patient: Brigette Problem: Pt. is restless and easily distracted. She presents with paranoid delusions and states, "I was living in [facility] and hanging out with vampires. 20,000 women and children in [facility] and they want all the blood." Intervention: : Introduced self and established rapport, maintained a safe and supportive environment, ensured contract for safety, provided active listening and positive encouragement, and maintained Q 15min safety checks. Response: Received pt pacing the unit, approached this RN and requested medication stating I am annoyed and I dont like peopleI really dont like new people and I dont want to be here. Re-assured pt that she would get her medication at the appropriate time. Pt later came back to this RN and smiling states hello, can I get my meds soon, I really need them. Provided pt with HS medications. Pt participated in snacks and later came to this RN stating you gave me the wrong meds! Pt went to bed shortly after. Plan: : Per Dr. Zee, pt. continues to be a high risk discharge and requires a safe and supportive environment.
[2021-10-17] MEDS ORDERED: LORazepam 1 MG tablet PO ONE (05:20)
[2021-10-17] MEDS: OLANZapine 5mg rapidly disint. tablet PO SCH ×2 (05:27→19:50)
--- NOTE | 2021-10-17 05:31 | NUR ---
Sleepiing Note: Pt up around 0430, irritable and agitated, threw her water pitcher and was spitting on the wall. Provider notified and given 1MG ativan and 10MG Zyprexa early.
[2021-10-17] MEDS ORDERED: haloperidol 5mg tablet PO PRN (07:05)
[2021-10-17 07:58] LABS: CHOLESTEROL 167 MG/DL (0-200); HDL CHOLESTEROL 55 MG/DL (35-60); LDL CHOLESTEROL 86 MG/DL (50-100); TRIGLYCERIDES 70 MG/DL (20-135)
[2021-10-17 08:00] VITALS: BP 117/71
[2021-10-17 08:13] LABS: HEMOGLOBIN A1C 5.5 % (4.5-6.2)
[2021-10-17] MEDS: ibuprofen 200mg tablet PO PRN ×3 (08:29→19:50)
--- NOTE | 2021-10-17 08:38 | NUR ---
PRNs Administered:Pt. continues to be very labile and reported anxiety r/t her desire to discharge. Pt. yelled out, "I'm tired of being here, all these weird people are annoying me!" Interventions Offered: Pt. was redirected back to her room and PRN Haldol was administered. Response to Medication: Pt. thanked this chief writer for the medication, will continue to monitor closely.
[2021-10-17] MEDS: acetaminophen 325mg tablet PO PRN ×2 (10:57→22:51)
[2021-10-17] MEDS: LORazepam 1 MG tablet PO PRN ×2 (12:58→22:51)
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
[2021-10-17 19:00] VITALS: BP 107/74
--- NOTE | 2021-10-17 22:44 | NUR ---
pt was sleeping now awake and up walking in the [employer].
[2021-10-17] MEDS: magnesium hydroxide 30ml (MOM) UD suspension PO PRN (22:50)
--- NOTE | 2021-10-17 22:55 | NUR ---
pt complaint of suture pain to scalp requested Tylenol or Motrin. medicated with Tylenol and had asked for mom earlier but when went to give it pt was asleep so given at this time in addiction to Ativan 1mg that she requested, pt eating a snack as well with her meds then went back into her room.
--- NOTE | 2021-10-18 04:55 | NUR ---
resting no changes.
--- NOTE | 2021-10-18 05:15 | NUR ---
800cc ice water given to the pt, 15 minutes later came back wanting more water to drink. told pt no more water right now but gave her a juice and jello to have.
--- NOTE | 2021-10-18 06:02 | NUR ---
pt went into rec room found her sitting on the floor talking to herself in squeaky baby talk to herself as she went through the magazines sorting them, on a self. then we had her leave room she smeared tooth paste all over her face. now singing in the [employer].
[2021-10-18] MEDS: ibuprofen 200mg tablet PO PRN ×2 (06:11→19:39)
[2021-10-18] MEDS: LORazepam 1 MG tablet PO PRN ×3 (06:11→19:39)
--- NOTE | 2021-10-18 06:14 | NUR ---
pt requested ativan and motrin for head pain. pt informed she needs to talk to us in a regular voice versus a squeaky child like voice. pt immediately said ok, in a normal toned voice then fell back to squeaky voice again restated she needs to use a normal voice and again said ok in a normal toned voice. pt instructed to wash her face off.
[2021-10-18 08:00] VITALS: BP 119/80
[2021-10-18] MEDS: OLANZapine 5mg rapidly disint. tablet PO SCH ×2 (08:29→19:40)
[2021-10-18] MEDS: olanzapine 10mg tablet PO SCH (11:39)
[2021-10-18] MEDS: acetaminophen 325mg tablet PO PRN (11:56)
--- NOTE | 2021-10-18 18:25 | NUR ---
Nursing Progress Note Problem : Pt admitted today on 5150 for Gravely disabled from our emergency room. Pt was found in a trash dumpster eating napkins. Pt has been very disorganized and disoriented. When asked where she lives she replies "They don't let me." Pt unable to articulate where she is or where she would go if she leaves hospital. Interventions : Maintained a safe and supportive environment, ensured contract for safety, provided clear and simple instructions, attempted to orient to reality, obtained orders for PRN anxiolytics, monitored behaviors and provided redirection as needed, and maintained Q 15min safety checks. Response : Received pt. sleeping w/o distress at the beginning of the shift. Pt woke and was cooperative with vitals and AM meds. Pt ate meals well today. Pt was labile throughout the day. Pleasant speaking in an almost little girl voice and then angry and hostile in speech and tone. Pt perceived peoples intentions throughout the day to be negative toward her. Pt c/o anxiety and received Ativan x2 with moderate effect. Pt Calmed in afternoon and spent more time in her room. Pt denies SI/HI and A/VH. Pt continues to make delusional statements r/t peoples motives and what they are saying. Plan : Pt. continues to require medication adjustments and a safe and supportive environment.
--- NOTE | 2021-10-18 19:45 | NUR ---
pt took her nighttime medications along with Motrin for scalp and foot pain and asked for Ativan po. then several minutes later became very intrusive when Rn was talking with her roommate and tried to talk her roommate out of taking medications she had asked for. we had to leave the room and then she followed us out again yelling she knew what those meds did and no one should be taking them. both the pt I was with and I ignored her she walked farther down the [employer] and started talking on the phone with her daughter in a childlike voice began singing old [place] Brando had a farm the switched quickly into a popular pop rock song of the "s.
--- NOTE | 2021-10-18 19:55 | NUR ---
pt talking on the phone she said to her daughter singing the old [place] had a farm to her one one in baby language the next singing a popular late 80' to 90's pop rock song. she earlier prior to this attempted to elicit an argument with the staff but quit when we walked away and ignored her.
[2021-10-18 20:00] VITALS: BP 113/80
--- NOTE | 2021-10-18 23:30 | NUR ---
resting eyes closed with head at foot of the bed.
--- NOTE | 2021-10-19 05:50 | NUR ---
Rn giving report to hemodialysis charge nurse pt intrusive on conversation said no it was this interjecting into conversation what she thinks a med is and statement incorrect at the time. then asked for her prn's. told her i would get it for her soon. she headed back to the room.
--- NOTE | 2021-10-19 06:05 | NUR ---
Ativan and Tylenol given as requested.
[2021-10-19] MEDS: LORazepam 1 MG tablet PO PRN ×3 (06:08→20:02)
[2021-10-19] MEDS: acetaminophen 325mg tablet PO PRN ×2 (06:08→12:01)
[2021-10-19] MEDS ORDERED: tizanidine 4mg tablet PO PRN (07:20)
[2021-10-19 08:00] VITALS: BP 129/97
[2021-10-19] MEDS: OLANZapine 5mg rapidly disint. tablet PO SCH ×2 (08:00→20:02)
[2021-10-19] MEDS: lamoTRIgine 25mg tablet PO SCH (08:00)
[2021-10-19] MEDS: ibuprofen 200mg tablet PO PRN ×2 (08:20→18:42)
[2021-10-19] MEDS: tizanidine 4mg tablet PO PRN ×2 (10:40→15:58)
--- NOTE | 2021-10-19 11:01 | NUR ---
Loss of Phone rights: PT called 911 to complain about her car and her care here. PBX called to notify us of this. PT gave the phone up willingly but continues to complain. PT does not want to hear any further instructions from this nurse.
[2021-10-19] MEDS: olanzapine 10mg tablet PO SCH (12:00)
--- NOTE | 2021-10-19 14:29 | NUR ---
Nursing Progress Note Problem : Pt admitted on a 5150 for Gravely disabled from our emergency room. Pt was found in a trash dumpster eating napkins. Pt has been very disorganized and disoriented. When asked where she lives she replies "They don't let me." Pt unable to articulate where she is or where she would go if she leaves hospital. Interventions : Maintained a safe and supportive environment, ensured contract for safety, provided clear and simple instructions, attempted to orient to reality, given anti-anxiety medication, and pain medication for removal of liz to head. Monitored behaviors and provided redirection as needed, and maintained Q 15min safety checks. Response : Patient was asleep at change of shift and up before breakfast. Patient was cooperative with morning medication. Pt was labile throughout the day and got upset when her needs were not addressed immediately. Patient overheard speaking in an a little girl voice at times. Pt c/o anxiety when RN attempted to remove sutures and patient crying. 15 minutes after pain meds (Tylenol and Motrin) and 1 mg Ativan given patient was able to have her 4 liz removed from her scalp. Pt denies SI/HI and A/VH. Pt continues to be disorganized and has childlike behaviors. Plan : Pt. continues to require medication adjustments and a safe and supportive environment. Q 15 minute checks. Patient needs redirection and good boundaries.
[2021-10-19 19:54] VITALS: BP 124/85
--- NOTE | 2021-10-19 23:04 | NUR ---
Nursing Progress Note Problem : Pt admitted on a 5150 for Gravely disabled from our emergency room. Pt was found in a trash dumpster eating napkins. Pt has been very disorganized and disoriented. When asked where she lives she replies "They don't let me." Pt unable to articulate where she is or where she would go if she leaves hospital. Interventions : Maintained a safe and supportive environment, ensured contract for safety, provided clear and simple instructions, attempted to orient to reality, given anti-anxiety medication, and pain medication for removal of liz to head. Monitored behaviors and provided redirection as needed, and maintained Q 15min safety checks. Response :Pt was in her room at change of shift. Introduced myself to patient and she complained that she wanted ibuprofen c/o pain. Pt is agitated asking for PRN ativan but was too soon to give. Pt then came out yelling at daysmtft nurse that she doesnt like her and wants a new nurse. Pt then complained she doesnt like me either and wants a new nurse now! Pt was given PRN ibuprofen then apologized saying she didnt mean it. Pt went to her room and slept until HS med pass. Pt woke for meds and had snacks. Pt was noted to be talking in a childlike voice and went to sleep. Plan : Pt. continues to require medication adjustments and a safe and supportive environment. Q 15 minute checks. Patient needs redirection and good boundaries.
--- NOTE | 2021-10-20 07:04 | NUR ---
Initial: Pt admitted w/ schizophrenia per EMR. Currently on Regular diet w/ mostly 100% intake of meals meeting needs. LBM 10/17 receiving PRN bowel care. No nutritional intervention implemented at this time, will continue to monitor. Recs: 1. Continue Regular diet as tolerated 2. Bowel care PRN 3. Weekly wts Addendum: 10/20/21 at [address] Amended: Links added.
[2021-10-20 08:00] VITALS: BP 130/89
[2021-10-20] MEDS: LORazepam 1 MG tablet PO PRN ×3 (08:03→20:58)
[2021-10-20] MEDS: lamoTRIgine 25mg tablet PO SCH (08:04)
[2021-10-20] MEDS: tizanidine 4mg tablet PO PRN ×2 (08:04→17:00)
[2021-10-20] MEDS: OLANZapine 5mg rapidly disint. tablet PO SCH ×2 (08:05→20:19)
[2021-10-20] MEDS: acetaminophen 325mg tablet PO PRN ×3 (08:39→20:19)
[2021-10-20] MEDS: ibuprofen 200mg tablet PO PRN ×2 (08:40→15:22)
--- NOTE | 2021-10-20 11:56 | NUR ---
Met with Brigette to discuss discharge plan. She was quite paranoid throughout the conversation. She talked about people stealing her money, her SSDI. She reported she needs to get new cards due to people stealing from her. Educated her about [facility] and offered to do a referral. She agreed to a referral, however, expressed concern, "I have a difficult time with a lot of people in that pocket of [place]...I'm not sure if I want to go there". She reported she could go to "[employer]" because that is her "safe haven". She reported it is a family member's address, "youngest father's uncle's house". Interaction was interrupted by Patient's Rights Advocate, Dorie Enriquez, needing to meet with Brigette. PATRIA James
--- NOTE | 2021-10-20 13:35 | NUR ---
5250 UPHELD FOR GD
[2021-10-20] MEDS: olanzapine 10mg tablet PO SCH (13:37)
--- NOTE | 2021-10-20 14:08 | NUR ---
[facility] REFERRAL Completed and sent [facility] referral to [facility]. PATRIA James
--- NOTE | 2021-10-20 17:48 | NUR ---
Nursing Progress Note Problem : Pt admitted on a 5150 for Gravely disabled from our emergency room. Pt was found in a trash dumpster eating napkins. Pt has been very disorganized and disoriented. When asked where she lives she replies. Pt unable to articulate where she is or where she would go if she leaves hospital. Patient verbalizes she doesn't like that her mom has her children. Interventions : Maintained a safe and supportive environment, ensured contract for safety, provided clear and simple instructions, attempted to orient to reality, given anti-anxiety medication. Monitored behaviors and provided redirection as needed, and maintained Q 15min safety checks. Response : Patient was asleep at change of shift and up before breakfast. Patient was cooperative with morning medication. Pt was labile throughout the day and got upset when her needs were not addressed immediately. Again patient was overheard speaking in an a little girl voice at times. Pt denies SI/HI and A/VH. Pt continues to be disorganized and has childlike behaviors. Patient did apologize to RN after she got mad that there was no Atarax ordered and she had just received her Ativan. Plan : Pt. continues to require medication adjustments and a safe and supportive environment. Q 15 minute checks. Patient needs redirection and good boundaries. Patient was referred to the [facility] but was not interviewed yet.
[2021-10-20 19:24] VITALS: BP 139/80
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
[2021-10-20] MEDS: LIDOcaine 5% patch TP SCH (21:56)
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
[2021-10-21] MEDS: LIDOcaine 5% patch TP SCH (07:48)
[2021-10-21] MEDS: OLANZapine 5mg rapidly disint. tablet PO SCH ×2 (07:49→20:11)
[2021-10-21] MEDS: lamoTRIgine 25mg tablet PO SCH (07:49)
[2021-10-21] MEDS: tizanidine 4mg tablet PO PRN (07:49)
[2021-10-21 08:00] VITALS: BP 110/88
[2021-10-21] MEDS: ibuprofen tablet 400 MG TABLET PO PRN ×2 (09:04→14:24)
[2021-10-21] MEDS: LORazepam 1 MG tablet PO PRN ×2 (09:04→14:24)
[2021-10-21] MEDS: acetaminophen 325mg tablet PO PRN (09:04)
--- NOTE | 2021-10-21 10:02 | NUR ---
Loss of phone right: Pt calling 911 over "my finances". Attempted to help pt figure out the correct place to call but pt starts accusing nurse of stalking and threatening. Pts phone right revoked today.
[2021-10-21] MEDS: olanzapine 10mg tablet PO SCH (12:18)
--- NOTE | 2021-10-21 17:57 | NUR ---
Nursing Progress Note Problem : Pt admitted on a 5150 for Gravely disabled from our emergency room. Pt was found in a trash dumpster eating napkins. Pt has been very disorganized and disoriented. When asked where she lives she replies. Pt unable to articulate where she is or where she would go if she leaves hospital. Patient verbalizes she doesn't like that her mom has her children. Interventions : Maintained a safe and supportive environment, ensured contract for safety, provided clear and simple instructions, attempted to orient to reality, given anti-anxiety medication. Monitored behaviors and provided redirection as needed, and maintained Q 15min safety checks. Response : Patient was asleep at change of shift and up before breakfast. Patient was cooperative with morning medication. Pt was labile throughout the day and got upset when her needs were not addressed immediately. Again patient was overheard speaking in an a little girl voice at times. Pt denies SI/HI and A/VH. Pt continues to be disorganized and has childlike behaviors. Patient requested a Writ hearing the previous 2 nights and then in the morning....cancels the request. Plan : Pt. continues to require medication adjustments and a safe and supportive environment. Q 15 minute checks. Patient needs redirection and good boundaries. Patient [facility] but was not interviewed yet.
[2021-10-21 19:23] VITALS: BP 115/62
--- NOTE | 2021-10-21 20:34 | NUR ---
Nursing Progress Note Problem : Pt admitted on a 5150 for Gravely disabled from our emergency room. Pt was found in a trash dumpster eating napkins. Pt has been very disorganized and disoriented. When asked where she lives she replies. Pt unable to articulate where she is or where she would go if she leaves hospital. Patient verbalizes she doesn't like that her mom has her children. Interventions : Maintained a safe and supportive environment, ensured contract for safety, provided clear and simple instructions, attempted to orient to reality, given anti-anxiety medication. Monitored behaviors and provided redirection as needed, and maintained Q 15min safety checks. Response : Patient was asleep in her room at change of shift. Pt woke for snack and asked for HS meds. Pt took HS meds and had a snack. Continues to talk in child like voice. Pt states her pain has improved and she is "mostly tired" and just wants to go back to bed. Plan : Pt. continues to require medication adjustments and a safe and supportive environment. Q 15 minute checks. Patient needs redirection and good boundaries. Patient was referred to the [facility] but was not interviewed yet. Addendum: 10/22/21 at 0125 by Tessie Jurado RN pt woke complaining that she had a nightmare "in my dream they killed my boss and I love my boss!" Pt states her anxiety is 8.5/10.
[2021-10-22] MEDS: LORazepam 1 MG tablet PO PRN ×3 (01:24→19:23)
[2021-10-22] MEDS: acetaminophen 325mg tablet PO PRN ×3 (06:14→19:23)
[2021-10-22] MEDS: lamoTRIgine 25mg tablet PO SCH (07:11)
[2021-10-22] MEDS: LIDOcaine 5% patch TP SCH (07:12)
[2021-10-22] MEDS: OLANZapine 5mg rapidly disint. tablet PO SCH (07:12)
[2021-10-22 08:00] VITALS: BP 122/86
[2021-10-22] MEDS: ibuprofen tablet 400 MG TABLET PO PRN ×2 (11:14→16:32)
[2021-10-22] MEDS: tizanidine 4mg tablet PO PRN (11:35)
[2021-10-22] MEDS: olanzapine 10mg tablet PO SCH (11:39)
--- NOTE | 2021-10-22 14:42 | NUR ---
Grievance Form: Pt submitted two grievance forms and a change of provider forms yesterday evening. I spoke with her this morning and she asked to retract those forms.
[2021-10-22] MEDS ORDERED: traMADol 50MG tablet PO PRN (17:10)
--- NOTE | 2021-10-22 17:17 | NUR ---
Nursing Progress Note: Brigette Problem: Intervention: Medication given as ordered. Provided with a safe and therapeutic environment, clear communication, active listening and positive encouragement. Response: Patient is awake at the start of the shift. She is loud and intrusive with staff. Fills out a grievance form on a staff member that states, Leon is a serial killer, stalking and menace. Immediate Termination, [facility]. Patient requires redirecting frequently due to agitation and yelling, I would like to exercise my right to Habeas Corpus! I would like to leave because he is creepy. You should be executed for tyranny and treason! PRN Ativan is given. PRN Tylenol/ Motrin are given for complaint of back pain which appear helpful. Thought process continues to be very disorganized and paranoid. She frequently accuses staff and patients of serious crimes such as murder and genocide. Plan: Patient continues to require crisis interruption and stabilization with medication management and monitoring in a safe and therapeutic environment.
[2021-10-22] MEDS: OLANZAPINE 5 MG TABLET PO SCH (19:23)
[2021-10-22 20:00] VITALS: BP 111/67
--- NOTE | 2021-10-23 05:37 | NUR ---
Nursing Progress Note: Brigette Problem: Pt admitted on a 5150 for Gravely disabled from our emergency room. Pt was found in a trash dumpster eating napkins. Pt has been very disorganized and disoriented. When asked where she lives she replies. Pt unable to articulate where she is or where she would go if she leaves hospital. Patient verbalizes she doesn't like that her mom has her children. Intervention: Medication given as ordered. Provided with a safe and therapeutic environment, clear communication, active listening and positive encouragement. Response: Patient presented a bit agitated in the beginning of the shift, PRN Ativan was given with evening meds as well as Tylenol due to complaints of back pain. Pt participated in group and socialized with others today during snack time. Thought process continues to be very disorganized and paranoid. She continues accuses staff and patients of crimes such as murder. Plan: Patient continues to require crisis interruption and stabilization with medication management and monitoring in a safe and therapeutic environment.
[2021-10-23] MEDS: lamoTRIgine 25mg tablet PO SCH (07:13)
[2021-10-23] MEDS: OLANZapine 5mg rapidly disint. tablet PO SCH (07:13)
[2021-10-23] MEDS: LORazepam 1 MG tablet PO PRN ×3 (07:13→20:48)
[2021-10-23] MEDS: LIDOcaine 5% patch TP SCH (07:16)
[2021-10-23 07:31] VITALS: BP 106/73
--- NOTE | 2021-10-23 08:13 | NUR ---
PRNs Administered: Ativan 1mg and Tramadol 25mg Interventions Offered: Pt. presented with restlessness AEB pacing and making high pitched squeaking noises. She also c/o chronic back pain and requested PRN Tramadol. Response to Medication: Pt. thanked this mortgage or loan underwriter for medications, will continue to monitor closely.
[2021-10-23] MEDS: traMADol 50MG tablet PO PRN (08:17)
[2021-10-23] MEDS: tizanidine 4mg tablet PO PRN (09:06)
[2021-10-23] MEDS: magnesium hydroxide 30ml (MOM) UD suspension PO PRN (09:12)
--- NOTE | 2021-10-23 09:17 | NUR ---
PRNs Administered: Zanaflex for muscle spasms Interventions Offered: Pt. is laying in bed at this time in a quiet environment with decreased stimulation. Response to Medication: Pt. thanked this lead technical writer for the medication and plans to continue resting, will continue to monitor.
--- NOTE | 2021-10-23 09:28 | NUR ---
[facility] INTERVIEW Jalen from [facility] is going to interview Brigette today at 3:30 PM today. PATRIA James
[2021-10-23] MEDS: acetaminophen 325mg tablet PO PRN ×2 (13:26→20:57)
--- NOTE | 2021-10-23 13:27 | NUR ---
PRNs Administered: Ativan and Tylenol Interventions Offered: Pt. reported anxiety AEB ongoing restlessness and chronic right shoulder pain. This fiction and nonfiction writer prose provided a quiet environment free from distractions and PRN medications. Response to Medication: Pt. is thanked this fiction and nonfiction writer prose for medication and is laying in bed at this time, will continue to monitor.
--- NOTE | 2021-10-23 14:00 | NUR ---
Nursing Progress Note: Problem : Pt admitted today on 5150 for Gravely disabled from our emergency room. Pt was found in a trash dumpster eating napkins. Pt has been very disorganized and disoriented. When asked where she lives she replies "They don't let me." Pt unable to articulate where she is or where she would go if she leaves hospital. This shift pt. presents with ongoing anxiety and paranoid delusions. Interventions : Maintained a safe and supportive environment, ensured contract for safety, provided clear and simple instructions, attempted to orient to reality, monitored behaviors and provided PRN medication and redirection as needed, and maintained Q 15min safety checks. Response : Received pt. awake restlessly ambulating in the hallway at the beginning of the shift, upon seeing this investment underwriter she requested her medications including PRN Ativan and Ultram for chronic back pain. Pt. continues to present with a somewhat labile affect, and makes inappropriate high pitched squeaking noises at intervals. PRN anxiolytic was administered with effectiveness, however, pt. then complained of chronic rt. shoulder pain and muscle spasms and Zanaflex was administered. 1:1 was completed later at bedside, pt. continues to deny any depression and presents as overly-animated at intervals. She also denies any A/V/MAR, and is not observed to be responding to internal stimuli. However, pt. continues to make paranoid delusional statements at intervals regarding being "hurt by others yesterday." Pt. napped intermittently during the day, and was observed to be appropriately interacting with her roommate. She remained somewhat restless AEB reports of anxiety and changed her clothes at frequent intervals. Plan : Per Dr. Zee, pt. continues to exhibit psychotic s/s and requires medication adjustments and a safe and supportive environment.
--- NOTE | 2021-10-23 15:28 | NUR ---
Pt. has been accepted at [facility].
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
[2021-10-23] MEDS: ibuprofen tablet 400 MG TABLET PO PRN (17:31)
[2021-10-23 20:00] VITALS: BP 129/82
[2021-10-23] MEDS: OLANZAPINE 5 MG TABLET PO SCH (20:48)
--- NOTE | 2021-10-24 03:58 | NUR ---
Nursing Progress Note: Brigette Problem: Pt admitted on a 5150 for Gravely disabled from our emergency room. Pt was found in a trash dumpster eating napkins. Pt has been very disorganized and disoriented. When asked where she lives she replies. Pt unable to articulate where she is or where she would go if she leaves hospital. Patient verbalizes she doesn't like that her mom has her children. Intervention: Medication given as ordered. Provided with a safe and therapeutic environment, clear communication, active listening and positive encouragement. Response: Patient was asleep at the beginning of the shift. She did not go to the activity room for snack hour. She was assessed and PM meds were given, during which time she began to cry. She stated that she, "wanted to stay here longer and don't want to be moved to another facility. I'm just getting used to this place and the people. I've heard bad things about the new place and it isn't safe." She expressed that it's causing anxiety and she just wants to stay here a little longer. I advised her that what she felt was valid, she thanked me for listening and then went to bed. Patient slept in her room off and on all night. PRNs given were Ativan and Tylenol for a headache. Plan: Patient continues to require crisis interruption and stabilization with medication management and monitoring in a safe and therapeutic environment.
[2021-10-24] MEDS: lamoTRIgine 25mg tablet PO SCH (07:45)
[2021-10-24] MEDS: acetaminophen 325mg tablet PO PRN (07:46)
[2021-10-24] MEDS: OLANZapine 5mg rapidly disint. tablet PO SCH (07:46)
[2021-10-24] MEDS: LORazepam 1 MG tablet PO PRN ×3 (07:46→20:25)
[2021-10-24 07:49] VITALS: BP 116/71
[2021-10-24] MEDS: LIDOcaine 5% patch TP SCH (07:53)
--- NOTE | 2021-10-24 07:55 | NUR ---
PRNs Administered: Ativan 1mg and Tylenol 650mg Interventions Offered: Pt. presented with restlessness AEB self report and again making high pitched squeaking noises. She also c/o chronic back pain and requested PRN Tylenol. Response to Medication: Pt. thanked this pattern chart writer for medications, will continue to monitor closely.
[2021-10-24] MEDS: tizanidine 4mg tablet PO PRN ×2 (08:10→16:31)
[2021-10-24] MEDS: magnesium hydroxide 30ml (MOM) UD suspension PO PRN (08:17)
--- NOTE | 2021-10-24 08:18 | NUR ---
PRNs Administered: Zanaflex for muscle spasms and MOM for constipation Interventions Offered: Pt. reported muscles spasms following breakfast, she stated, "It's from digestion." She also reports ongoing constipation r/t incomplete emptying of her bowls. Response to Medication: Pt. thanked this insurance writer for the medication and plans to continue resting, will continue to monitor.
--- NOTE | 2021-10-24 09:36 | NUR ---
ACCEPTED AT [facility] Brigette has been accepted at [facility] and they can admit her on Wednesday. She will need PPD or chest x-ray and Covid test (completed Wed AM). PATRIA James
[2021-10-24] MEDS ORDERED: tuberculin, purif. prot. deriv. 5 units/0.1ml ID ONE (09:45)
[2021-10-24] MEDS: traMADol 50MG tablet PO PRN (10:18)
--- NOTE | 2021-10-24 10:30 | NUR ---
Pt. had a TB test placed in her right forearm, she tolerated this procedure well. Per social science teacher, pt. to discharge to [facility] on Wednesday.
[2021-10-24] MEDS: ibuprofen tablet 400 MG TABLET PO PRN (15:39)
--- NOTE | 2021-10-24 15:40 | NUR ---
PRNs Administered: Ativan 1mg and Motrin Interventions Offered: Pt. presented with anxiety and agitation and was observed by this promotion writer to be yelling aloud at someone on the telephone regarding ongoing fixed delusional thoughts. Pt. was able to be redirected and medication was administered. Response to Medication: Pt. thanked this promotion writer for medications, will continue to monitor closely.
[2021-10-24] MEDS ORDERED: LAMO25TA5 PO (17:50)
[2021-10-24] MEDS ORDERED: OLAN15TA20 PO (17:51)
[2021-10-24] MEDS ORDERED: OLAN5TAB75 PO (17:52)
--- NOTE | 2021-10-24 17:54 | NUR ---
Nursing Progress Note: Problem : Pt admitted today on 5150 for Gravely disabled from our emergency room. Pt was found in a trash dumpster eating napkins. Pt has been very disorganized and disoriented. When asked where she lives she replies "They don't let me." Pt unable to articulate where she is or where she would go if she leaves hospital. This shift pt. presents with ongoing anxiety and paranoid delusions. Interventions : Maintained a safe and supportive environment, ensured contract for safety, provided clear and simple instructions, attempted to orient to reality, monitored behaviors and provided PRN medication and redirection as needed, and maintained Q 15min safety checks. Response : Received pt. sleeping at the beginning of the shift, she awoke and sat interacting appropriately with others in the Group Room. Pt. continues to present with restlessness and makes frequent medication requests and has frequent somatic s/s of pain. PRN Ativan and pain medications were again administered at intervals with effectiveness. 1:1 was completed at bedside, pt. again reports some ongoing anxiety and makes intermittent high pitched squeaking noises at times. She admits that she is happy to be staying on the unit until Wednesday because it was causing her anxiety to think of getting to know a new facility and new staff. As the conversation continues, pt. begins making what appear to be delusional statements. 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 Pt. presented with decreased lability this shift, however she did exhibit some increased anxiety and agitation in the afternoon AEB observed to be yelling at someone on the telephone in a delusional manner. PRN Ativan was administered with effectiveness. Plan : Per Dr. Zee, pt. continues to require a safe and supportive environment. She will discharge Wednesday to [facility].
[2021-10-24] MEDS: OLANZAPINE 5 MG TABLET PO SCH (19:34)
[2021-10-24 20:00] VITALS: BP 111/70
--- NOTE | 2021-10-25 04:48 | NUR ---
Nursing Progress Note: Brigette Problem: Pt admitted on a 5150 for Gravely disabled from our emergency room. Pt was found in a trash dumpster eating napkins. Pt has been very disorganized and disoriented. When asked where she lives she replies. Pt unable to articulate where she is or where she would go if she leaves hospital. Patient verbalizes she doesn't like that her mom has her children. Intervention: Medication given as ordered. Provided with a safe and therapeutic environment, clear communication, active listening and positive encouragement. Response: Patient was resting in bed at the beginning of the shift. She did go to the activity room for snack hour. She was assessed and PM meds were given. She did not cry tonight, although she was somber. PRNs given were Ativan. Patient slept in bed for most of night. Plan: Patient continues to require crisis interruption and stabilization with medication management and monitoring in a safe and therapeutic environment.
[2021-10-25] MEDS: lamoTRIgine 25mg tablet PO SCH (07:17)
[2021-10-25] MEDS: LIDOcaine 5% patch TP SCH (07:19)
[2021-10-25] MEDS: OLANZapine 5mg rapidly disint. tablet PO SCH (07:20)
[2021-10-25] MEDS: tizanidine 4mg tablet PO PRN (07:46)
[2021-10-25] MEDS: magnesium hydroxide 30ml (MOM) UD suspension PO PRN (07:46)
[2021-10-25] MEDS: acetaminophen 325mg tablet PO PRN (07:46)
--- NOTE | 2021-10-25 07:53 | NUR ---
PRNs Administered: Zanaflex for muscle spasms and Tylenol Interventions Offered: Pt. reported chronic generalized body pain, she continues to report this pain increases when she eats r/t digestion. Pt. requested PRN pain medication prior to eating. Response to Medication: Pt. thanked this information writer for the medication and will continue to monitor closely.
[2021-10-25 08:00] VITALS: BP 122/65
[2021-10-25] MEDS: LORazepam 1 MG tablet PO PRN ×2 (11:43→16:59)
[2021-10-25] MEDS: traMADol 50MG tablet PO PRN (11:57)
--- NOTE | 2021-10-25 11:58 | NUR ---
PRNs Administered: Ativan for reported anxiety and Ultram for chronic generalized pain Interventions Offered: Pt. requested PRN Ativan following group stating, "Being in group really triggered me." She also requested PRN Trazodone for chronic generalized pain. Pt. was provided active listening and positive encouragement along with medications. Response to Medication: Pt. thanked this web content writer for the medication and plans to continue resting, will continue to monitor.
[2021-10-25] MEDS: ibuprofen tablet 400 MG TABLET PO PRN (12:54)
--- NOTE | 2021-10-25 16:25 | NUR ---
Nursing Progress Note: Problem : Pt admitted today on 5149 for Gravely disabled from our emergency room. Pt was found in a trash dumpster eating napkins. Pt has been very disorganized and disoriented. When asked where she lives she replies "They don't let me." Pt unable to articulate where she is or where she would go if she leaves hospital. Pt. continues to present with anxiety, however this appears improved. She makes what appear to be occasional delusional statements. Interventions : Maintained a safe and supportive environment, ensured contract for safety, provided clear and simple instructions, attempted to orient to reality, monitored behaviors and provided PRN medication and redirection as needed, and maintained Q 15min safety checks. Response : Received pt. up in the hallway at the beginning of the shift, she greeted this abstract writer animatedly. Pt. sat coloring in the Group Room while awaiting breakfast, she again requested PRN pain medication and continues to present with multiple somatic complaints. However, these somatic complaints and pt's anxiety appear to be decreasing each day and she is better able to use her own coping skills. 1:1 was completed, pt. again denies all MH s/s, but does make what appear to be occasional delusional statements. Pt. 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 and being in a new environment with new staff. Pt. continues to report anxiety at intervals and perseverates over getting her car back which was taken by the police prior to her admission. Pt. was observed to be interacting appropriately with others throughout the day, and napped at intervals. No agitated outbursts were exhibited. Plan : Per Dr. Zee, pt. continues to require a safe and supportive environment. She will discharge Wednesday to [facility]
[2021-10-25] MEDS: OLANZAPINE 5 MG TABLET PO SCH (20:39)
--- NOTE | 2021-10-26 05:08 | NUR ---
pt appropriate with RN. requested prune juice for constipation. stated that other staff were ganging up on her. when questioned why she thought staff did that, she gave no response other than she just wanted to tell someone for the record. pt went to bed after her medications and looks to have been asleep each time she was looked in on. possible placement to [facility] unit per progress notes.
[2021-10-26 08:00] VITALS: BP 109/73
[2021-10-26] MEDS: lamoTRIgine 25mg tablet PO SCH (08:19)
[2021-10-26] MEDS: LORazepam 1 MG tablet PO PRN ×2 (08:19→15:04)
[2021-10-26] MEDS: OLANZapine 5mg rapidly disint. tablet PO SCH (08:19)
[2021-10-26] MEDS: acetaminophen 325mg tablet PO PRN (08:20)
[2021-10-26] MEDS: LIDOcaine 5% patch TP SCH (08:28)
[2021-10-26] MEDS: traMADol 50MG tablet PO PRN ×2 (09:44→12:47)
[2021-10-26] MEDS: tizanidine 4mg tablet PO PRN (09:44)
[2021-10-26] MEDS ORDERED: magnesium hydroxide 30ml (MOM) UD suspension PO ONE (14:55)
[2021-10-26] MEDS: ibuprofen tablet 400 MG TABLET PO PRN (15:04)
--- NOTE | 2021-10-26 17:47 | NUR ---
Nursing Progress Note: Problem : Pt admitted today on 5150 for Gravely disabled from our emergency room. Pt was found in a trash dumpster eating napkins. Pt has been very disorganized and disoriented. When asked where she lives she replies "They don't let me." Pt unable to articulate where she is or where she would go if she leaves hospital. Pt. continues to present with anxiety, however this appears improved. She makes what appear to be occasional delusional statements. Interventions : Maintained a safe and supportive environment, ensured contract for safety, provided clear and simple instructions, attempted to orient to reality, monitored behaviors and provided PRN medication and redirection as needed, and maintained Q 15min safety checks. Response : Received pt. awake in the hallway at the beginning of the shift. Pt cooperative with vitals and attended breakfast and lunch and ate well. Pt very social during meals with other Pts. Pt took AM meds along with PRNs for pain and muscle spasm throughout the day. Pt showered and is well groomed. Pt talked with this nurse about upcoming DC to [facility] and we discussed how she could use that resource. Pt given MOM and meds for anxiety and pain in afternoon as well. Pt napped in AM and used phone throughout the day. She was ruminating on issue with her car being impounded and how to deal with it. Pt did not have any loud or angry outbursts this shift. Plan : Per Dr. Zee, pt. continues to require a safe and supportive environment. She will discharge Wednesday to [facility].
[2021-10-26 20:15] LABS: FERRITIN 11 NG/ML (8-252)
[2021-10-26 20:17] LABS: % IRON SATURATION 17 % (11-46); IRON 53 UG/DL (49-151); TOTAL IRON BINDING CAPACITY 319 UG/DL (259-388)
[2021-10-26] MEDS: OLANZAPINE 5 MG TABLET PO SCH (20:39)
[2021-10-26] MEDS: magnesium hydroxide 30ml (MOM) UD suspension PO PRN (20:48)
[2021-10-26] MEDS ORDERED: ascorbic acid 500mg tablet PO SCH (21:00)
[2021-10-26] MEDS ORDERED: ferrous sulfate 325mg tablet PO SCH (21:00)
--- NOTE | 2021-10-27 05:08 | NUR ---
Nursing Progress Note: Problem : Pt admitted 10/16/21 on 5150 for Gravely disabled from our emergency room. Pt was found in a trash dumpster eating napkins. Pt has been very disorganized and disoriented. When asked where she lives she replies "They don't let me." Pt unable to articulate where she is or where she would go if she leaves hospital. Pt. continues to present with anxiety, however this appears improved. She makes what appear to be occasional delusional statements. Interventions : Maintained a safe and supportive environment, ensured contract for safety, provided clear and simple instructions, attempted to orient to reality, monitored behaviors and provided PRN medication and redirection as needed, as well as Q 15min safety checks. Response : Received pt. sleeping in her bed at the beginning of the shift. Pt refused to allow for VS to be taken. Patient did not wake up to go down for snacks. Pt. did allow for physical assessment and she removed her lidoderm patch and gave to me when I told her that I was going to remove it. When I started to ask the usual mental health questions, Pt abruptly blurted out " and don't be asking me about suicide again". I stated that I was going to ask about having any audio or visual hallucinations, and she started to say not "unless", and then rambled real fast about a book, anglican and Santino. I honestly could not make out exactly what she was saying it was so fast. Pt. did take her HS meds and requested snacks as missed the "snack time" and said , "only health food , no crap". She seemed happy with the sandwich,apple sauce and juice. Patient also requested MOM which was given. Patient then went back to sleep. Plan : Per Dr. Zee, pt. continues to require a safe and supportive environment. She will discharge either Wednesday or Wednesday to [facility]3].
[2021-10-27] MEDS: acetaminophen 325mg tablet PO PRN (06:23)
[2021-10-27] MEDS ORDERED: docusate sod 100mg capsule PO ONE (08:00)
[2021-10-27] MEDS: LIDOcaine 5% patch TP SCH (08:17)
[2021-10-27] MEDS: lamoTRIgine 25mg tablet PO SCH (08:18)
[2021-10-27] MEDS: OLANZapine 5mg rapidly disint. tablet PO SCH (08:18)
[2021-10-27 08:50] VITALS: BP 109/77
[2021-10-27] MEDS: LORazepam 1 MG tablet PO PRN (09:06)
--- NOTE | 2021-10-27 13:50 | NUR ---
Patient given discharge instructions. All questions were answered. Patient ambulatory steady gait with all her belongings with MILTON Quintero to the lobby where the [facility] Sewer Line Photo Inspector was waiting. Patient going to the [facility]. Patient is calm and cooperative. No distress observed. Patient states she wants to go back to [place] to be with her family. Patient has no wounds, was not here more than 21 days. Patient is stable and taking her medications.
== END 2021-10-27 13:55 | DRG 885 ==
LOC: ER 13:14 → ADULT MH 10-15 20:00 → UNDOADMIN 10-15 20:00 → ED HOLD 10-16 07:09 → ADULT MH 10-16 09:07
PROVIDERS: ADMIT Psychiatry & Neurology Psychiatry; ATTEND Psychiatry & Neurology Psychiatry
DX: F20.9 Schizophrenia, unspecified (principal); M54.9 Dorsalgia, unspecified; Z20.822 Contact with and (suspected) exposure to COVID-19; M62.838 Other muscle spasm; D64.9 Anemia, unspecified; G89.29 Other chronic pain; K59.00 Constipation, unspecified; F15.90 Other stimulant use, unspecified, uncomplicated; F12.10 Cannabis abuse, uncomplicated; Z86.74 Personal history of sudden cardiac arrest; Z59.00 Homelessness unspecified
CPT/HCPCS: 36415; 80053; 80061; 80305; 80320; 81001; 81025; 82728; 83036; 83540; 83550; 84443; 85025; 87081; 87635; 99285; C9803; J1200; J1630; J2060; J3490